=== PATIENT | male | born 2000 | race Caucasian/White ===

== ENCOUNTER 2023-10-23 22:41 | Emergency (ER) | payer SELFPAY ==
[~2023-10-23] VITALS: Ht 167.6 cm; Wt 74.5 kg
[2023-10-23 22:43] VITALS: TEMP 98.2
[2023-10-23] MEDS ORDERED: ceFAZolin 2 G in Water For Injection,Sterile 20 ML IV ONE (23:00)
[2023-10-23] MEDS ORDERED: NS 1,000 ML IV ONE (23:00)
[2023-10-23] MEDS ORDERED: Ondansetron 4 MG/2 ML VIAL IV ONE (23:15)
[2023-10-23] MEDS ORDERED: Morphine 4 MG/ML VIAL IV ONE (23:15)
[2023-10-23 23:37] LABS: HEMATOCRIT 41.4 % (42.0-52.0); HEMOGLOBIN 14.8 g/dl (13.5-18.0); MEAN CELL VOLUME 86 fl (80.0-100.0); MEAN CORPUSCULAR HEMOGLOBIN 31 pg (27-31); MEAN CORPUSCULAR HGB CONC 36 g/dl (33.0-37.0); MEAN PLATELET VOLUME 8.6 fl (7.4-10.4); PLATELET COUNT 375 K/mm3 (130-400); RED BLOOD COUNT 4.82 M/mm3 (4.20-5.60); REDCELL DISTRIBUTION WIDTH-CV 13.1 % (11.5-14.5)
[2023-10-23 23:52] LABS: BAND 9 % (0-10); BASOPHIL 1 % (0-2); EOSINOPHIL 1 % (0-4); LYMPHOCYTE 14 % (20.0-51.0); NEUTROPHILS 69 % (42.0-75.2)
[2023-10-23 23:53] LABS: INR 1.1 (0.8-3.0); PROTHROMBIN TIME 12.1 SECONDS (9.7-12.8)
[2023-10-23 23:55] LABS: ALBUMIN 4.4 g/dL (3.5-5.0); BILIRUBIN,TOTAL 1.2 mg/dL (0.2-1.2); CALCIUM 9.7 mg/dL (8.4-10.2); CREATININE, serum 0.92 mg/dL (0.72-1.25); PARTIAL THROMBOPLASTIN TIME 25.8 SECONDS (26.0-37.0); TOTAL PROTEIN 6.7 g/dl (6.2-8.1)
[2023-10-24] MEDS ORDERED: Potassium Chloride 100 ML IV SCH (00:15)
[2023-10-24] MEDS ORDERED: fentaNYL 50 MCG/ML 2 ML VIAL IV ONE (01:00)
[2023-10-24] MEDS ORDERED: KETAMINE IV ONE (01:30)
[2023-10-24] MEDS ORDERED: NS IV ONE (01:30)
[2023-10-24 02:09] LABS: HEMATOCRIT 38.6 % (42.0-52.0); HEMOGLOBIN 13.4 g/dl (13.5-18.0)
[2023-10-24 02:40] VITALS: BP 164/103; PULSE 90
== END 2023-10-24 02:40 | disposition short-term general hospital (02) ==
LOC: COL.ER 22:41
PROVIDERS: Emergency Medicine
DX: S92.342A Displaced fracture of fourth metatarsal bone, left foot, initial encounter for closed fracture (principal); S92.352A Displaced fracture of fifth metatarsal bone, left foot, initial encounter for closed fracture; S82.302A Unspecified fracture of lower end of left tibia, initial encounter for closed fracture; S82.832A Other fracture of upper and lower end of left fibula, initial encounter for closed fracture; V09.9XXA Pedestrian injured in unspecified transport accident, initial encounter; Y93.01 Activity, walking, marching and hiking; Y92.410 Unspecified street and highway as the place of occurrence of the external cause
CPT/HCPCS: J0688; J2270; J2405; J3010; J3480; J7030; J7040